=== PATIENT | male | born 1960 | race Two or more races ===

== ENCOUNTER 2020-09-01 14:11 | Emergency (ER) | payer SELFPAY ==
[~2020-09-01 14:11] MED LIST: ZOFRAN ODT4 MG PO; [UNRECOGNIZED DRUG - REMARK]
[2020-09-01] MEDS ORDERED: KEFLEX CAP 250250 MG PO (18:09)
== END 2020-09-01 18:50 | disposition home or self-care (01) ==
LOC: ER1 14:11
DX: S01.01XA Laceration without foreign body of scalp, initial encounter (principal); Z88.5 Allergy status to narcotic agent; Z23 Encounter for immunization; W01.0XXA Fall on same level from slipping, tripping and stumbling without subsequent striking against object, initial encounter; Y92.89 Other specified places as the place of occurrence of the external cause; Y99.0 Civilian activity done for income or pay
CPT/HCPCS: 13121; 13122; 70450; 72125; 90471; 90715; 99283